=== PATIENT | female | born 1945 | race Caucasian/White ===

== ENCOUNTER → 2016-08-02 | Outpatient (CLI) | payer MEDICARE, OTHER, MEDICAID ==
--- NOTE | 2016-08-02 16:45 | RADIOLOGY REPORT (SQ) ---
EXAM DESCRIPTION: CT CHEST WITH COMPLETED DATE/TIME: 08/02/2016 4:29 pm REASON FOR STUDY: PLEURISY R09.1 PLEURISY R05 COUGH COMPARISON: None. TECHNIQUE: CT scan of the chest performed using helical scanning technique with dynamic intravenous contrast injection. Images reviewed with lung, soft tissue and bone windows. Reconstructed coronal and sagittal MPR images reviewed. All images stored on PACS. All CT scanners at this facility use dose modulation, iterative reconstruction, and/or weight based d osing when appropriate to reduce radiation dose to as low as reasonably achievable (ALARA). [facility]: Dose Right [facility]: CareDose [facility]: Dose Right [facility]: Teradose 4D [facility]: 41st Parameter CONTRAST TYPE AND DOSE: contrast/concentration: Isovue 370.00 mg/ml; Total Contrast Delivered: 80.0 ml; Total Saline Delivered: 55.0 ml RENAL FUNCTION: Creatinine 0.7 RADIATION DOSE: Up-to-date CT equipment and radiation dose reduction techniques were employed. CTDIv ol: 5.3 mGy. DLP: 186 mGy-cm. . LIMITATIONS: None. FINDINGS: LUNGS AND PLEURA: There is a small calcified granuloma in the right middle lobe on image 7 4 series 4. HILAR AND MEDIASTINAL STRUCTURES: No identified masses or abnormal nodes. HEART AND VASCULAR STRUCTURES: No aneurysm or dissection. No central pulmonary emboli. No pericardi al effusion. HARDWARE: See below UPPER ABDOMEN: No significant findings. Limited exam. THYROID AND OTHER SOFT TISSUES: No masses. No adenopathy. BONES: Marked compression changes are present at T8. Posterior rods extend from T6-T8 with screws ex tending through the pedicles of T6 and T8. Vertebroplasty changes are present at T7 where there are milder compression changes. OTHER: No other significant finding. IMPRESSION: 1. There is no acute cardiopulmonary disease. 2. There are compression changes and surgical changes in the thoracic spine as described. TECHNICAL DOCUMENTATION: JOB ID: [id number] Quality ID # [id number]: Final reports with documentation of one or more dose reduction techniques (e.g., Au tomated exposure control, adjustment of the mA and/or kV according to patient size, use of iterative reconstruction technique) 2010 [employer]- All Rights Reserved
== END ==
LOC: RAD 15:10
PROVIDERS: ATTEND Internal Medicine
DX: R09.1 Pleurisy (principal); R05 Cough
CPT/HCPCS: 71260; 82565